=== PATIENT | male | born 1985 | race Caucasian/White ===

== ENCOUNTER 2017-02-07 04:14 | Emergency (ER) | payer OTHER ==
[~2017-02-07] VITALS: Ht 175.3 cm; Wt 88.5 kg
[2017-02-07 04:30] VITALS: BP 127/79
== END 2017-02-07 07:16 | disposition left against medical advice (07) ==
LOC: ER 04:20
DX: M54.5 Low back pain (principal); Z53.21 Procedure and treatment not carried out due to patient leaving prior to being seen by health care provider